=== PATIENT | male | born 1990 | race Caucasian/White ===

== ENCOUNTER 2020-05-15 11:11 | Observation (INO) | payer BC ==
[~2020-05-15] VITALS: Ht 185.4 cm; Wt 249.0 kg
[2020-05-15] VITALS (17 sets, daily range): BP systolic 104–175; BP diastolic 59–94
[2020-05-15 11:47] LABS: BASOPHILS # (AUTO) 0.1 X10'3 (0-0.2); BASOPHILS % (AUTO) 0.5 % (0-1); EOSINOPHILS % (AUTO) 0.1 % (0-6); HEMATOCRIT 47.2 % (42.0-52.0); HEMOGLOBIN 15.6 g/dl (14.0-17.9); LYMPHOCYTES # (AUTO) 1.1 X10'3 (1.1-4.8); LYMPHOCYTES % (AUTO) 6.9 % (21-51); MEAN CORPUSCULAR HEMOGLOBIN 27.1 PG (27.0-31.0); MEAN CORPUSCULAR HGB CONC 32.9 g/dL (33.0-36.5); MEAN CORPUSCULAR VOLUME 82.2 FL (78-98); MEAN PLATELET VOLUME 8.2 FL (7.4-10.4); MONOCYTES # (AUTO) 0.9 X10'3 (0-0.9); MONOCYTES % (AUTO) 5.6 % (2-12); NEUTROPHILS # (AUTO) 14.3 X10'3 (1.8-7.7); NEUTROPHILS % (AUTO) 86.9 % (42-75); PLATELET COUNT 271 X10'3 (140-440); RED BLOOD COUNT 5.74 X10'6 (4.70-6.10); RED CELL DISTRIBUTION WIDTH 14.8 % (11.5-14.5); WHITE BLOOD COUNT 16.5 X10'3 (4.5-11.0)
[2020-05-15] MEDS ORDERED: morphine 4 MG/ML inj SYRINge IV ONE (12:05)
[2020-05-15] MEDS ORDERED: ondansetron/PF 4mg/2ml inj IV ONE (12:05)
[2020-05-15] MEDS ORDERED: normal saline 1000ml 1,000 ML IV ONE (12:15)
[2020-05-15 12:28] LABS: ALANINE AMINOTRANSFERASE 48 U/L (12-78); ALBUMIN/GLOBULIN RATIO 0.9 (1.1-1.5); ALKALINE PHOSPHATASE 60 IU/L (46-116); ANION GAP 3 (8-16); ASPARTATE AMINO TRANSFERASE 19 U/L (10-37); BILIRUBIN,TOTAL 0.8 MG/DL (0.1-1.0); BLOOD UREA NITROGEN 9 MG/DL (7-18); BUN/CREATININE RATIO 10.5 (5.4-32.0); CALCIUM 8.9 MG/DL (8.5-10.1); CHLORIDE 103 MMOL/L (99-107); CREATININE 0.86 MG/DL (0.60-1.10); GLUCOSE 135 MG/DL (70-104); LIPASE 91 U/L (73-393); SODIUM 133 MMOL/L (135-145); TOTAL CARBON DIOXIDE 26.8 MMOL/L (24-32); TOTAL PROTEIN 8.6 G/DL (6.4-8.2); eGFR > 90 ML/MIN
[2020-05-15] MEDS ORDERED: levoFLOXACIN-Levaquin 500mg/D5 100 ML IV ONE (12:45)
[2020-05-15] MEDS ORDERED: NO HOME MEDS (12:53)
[2020-05-15] MEDS ORDERED: potassium Cl 20 mEq SR tablet PO PRN ×2 (13:40)
[2020-05-15] MEDS ORDERED: ondansetron/PF 4mg/2ml inj IV PRN ×2 (13:40→15:20)
[2020-05-15] MEDS ORDERED: potassium Cl 40MEQ/1/2NS 520ml 520 ML IV PRN ×2 (13:40)
[2020-05-15] MEDS ORDERED: magnesium 2GM in 50ml NS 50 ML IV PRN (13:40)
[2020-05-15] MEDS ORDERED: magnesium 4gm in 100ml NS 100 ML IV PRN (13:40)
[2020-05-15] MEDS ORDERED: magnesium Cl slow-release 64mg tablet PO PRN (13:40)
[2020-05-15] MEDS ORDERED: morphine 2 MG/ML inj. syringe IV PRN ×2 (13:40→15:20)
[2020-05-15] MEDS: normal saline 1000ml 1,000 ML IV SCH (13:54)
[2020-05-15] MEDS ORDERED: morphine 4 MG/ML inj SYRINge IV PRN (15:20)
[2020-05-15] MEDS ORDERED: hydrALAZINE 20mg/ml inj. IV PRN (15:20)
[2020-05-15] MEDS ORDERED: ringers solution, lacted 1,000 ML IV SCH (15:20)
[2020-05-15] MEDS ORDERED: labetalol 20mg/4ml (5mg/ml) syringe IV PRN (15:20)
[2020-05-15] MEDS ORDERED: ringers solution, lacted 1,000 ML IV ONE (15:20)
[2020-05-15] MEDS ORDERED: fentaNYL/PF 50MCG/1 ML 2ML syringe IV PRN ×2 (15:20)
[2020-05-15] MEDS ORDERED: TEST200V10 IM (15:21)
[2020-05-15 15:44] LABS: CLARITY,URINE CLEAR (Clear); COLOR,URINE YELLOW (Yellow); GLUCOSE, URINE NEGATIVE (Neg); KETONES,URINE NEGATIVE (Neg); LEUKOCYTE ESTERASE ,URINE NEGATIVE (Neg); NITRITES, URINE NEGATIVE (Neg); OCCULT BLOOD,URINE MODERATE (Neg); PROTEIN,URINE TRACE mg/dl (Neg); UROBILINOGEN,URINE 0.2 E.U/dL (0.2-1.0)
[2020-05-15 15:47] LABS: UA COLLECTION TYPE CLN CATCH MIDSTREAM
[2020-05-15 15:55] LABS: MUCUS STRANDS NONE SEEN /LPF (Neg); SQUAMOUS EPITHELIAL CELL,UR FEW /LPF (FEW)
[2020-05-15 15:57] LABS: BACTERIA,URINE NONE SEEN /HPF (Neg); WBC,URINE 0-4 /HPF (0-4)
--- NOTE | 2020-05-15 15:57 | NUR ---
OR CALLED AND WILL BE DOWN TO TAKE PT TO SURGERY IN APPROX 10 MIN, SURGERY SCHEDULED FOR APPROX [id number]. PT HAS REQUESTED THAT INFORMATION BE GIVEN TO HIS GIRLFRIEND, YARELI MERRILL, SHOULD SHE CALL FOR PT STATUS UPDATES. CONTACT # [phone]
[2020-05-15] MEDS ORDERED: LIDOcaine 1% 30ml preserv. free vial ONE (15:59)
[2020-05-15] MEDS ORDERED: BUPIVAcaine/PF 2.5 mg/ml (0.25%) 30ml vial ONE (15:59)
[2020-05-15] MEDS ORDERED: fentaNYL /PF 50mcg/ml 5ml ampule ONE (16:34)
[2020-05-15] MEDS ORDERED: midazolam 2 mg/2 ml injection ONE (16:34)
[2020-05-15] MEDS ORDERED: LIDOcaine 2% (20mg/ml) 5ml vial ONE (16:36)
[2020-05-15] MEDS ORDERED: propofol inj 20 ML IV ONE ×2 (16:36)
[2020-05-15] MEDS ORDERED: rocuronium 10mg/ml inj IV ONE (16:37)
[2020-05-15] MEDS ORDERED: succinylcholine 20mg/ml inj IV ONE (16:37)
[2020-05-15] MEDS ORDERED: neostigmine methylsulfate 1 MG/ML 10ml vial ONE (16:49)
[2020-05-15] MEDS ORDERED: dexamethasone sod phosphate 10mg/ml inj ONE (16:49)
[2020-05-15] MEDS ORDERED: glycopyrrolate 0.2mg/ml inj ONE (16:49)
[2020-05-15] MEDS ORDERED: sevoflurane 250ml liquid IH ONE (16:49)
[2020-05-15] MEDS ORDERED: ondansetron/PF 4mg/2ml inj ONE (17:09)
[2020-05-15] MEDS ORDERED: ceFOXitin 1000 MG inj ONE ×3 (17:12)
[2020-05-15] MEDS ORDERED: labetalol 20mg/4ml (5mg/ml) syringe IV ONE (17:30)
--- NOTE | 2020-05-15 18:20 | NUR ---
Received from OR via BED, accompanied by Anesthesiologist DR JASMINE and report given by Anesthesiolgist. PATIENT AWAKE AND TEARFUL-REASSURED THAT SX WENT WELL AND "HE DIDNT HURT ANYBODY" PT WAS AFRAID HE HAD BEEN AGGRESSIVE, DENIES PAIN, V/S WNL, NEUROVASCULAR CHECKS INTACT, 20G PIV RAC LR RUNNING, BANDAIDS X4 TO ABD CDI, PT DENIES N/V.
[2020-05-15] MEDS ORDERED: HYDROcodone/acetaminophen 5mg/325mg tablet PO PRN (18:25)
[2020-05-15] MEDS ORDERED: HYDROcodone/acetaminophen 10/325mg tab PO PRN (18:25)
--- NOTE | 2020-05-15 20:10 | NUR ---
PT REMAINS COMFORTABLE WITH JUST A SLIGHT HEADACHE, DENIES N/V, VS-WNL, ABD DRSG-4 BANDAIDS CDI, PIV RUNNING WITH LR, ON 4LTRS NC-PT TO HAVE CONT PULSE OX WHILE SLEEPING D/T SLEEP APNEA HX, PATIENT TAKEN TO RM 354A WITH ALL BELONGINGS AND HOOKED UP TO MONITORS IN ROOM AND REPORT GIVEN TO SHIRA RON WHO HAS TAKEN OVER PATIENT CARE.
[2020-05-15] MEDS: K and/or MAG REPLACEMENT MC SCH (20:20)
[2020-05-15] MEDS: acetaminophen 325mg tablet PO PRN (22:48)
[2020-05-16] VITALS: BP_SYST 136; BP_SYST 148; BP_DIAS 78; BP_DIAS 81
[2020-05-16] MEDS: normal saline 1000ml 1,000 ML IV SCH ×2 (05:18→09:40)
[2020-05-16] MEDS ORDERED: famotidine 20mg tablet PO ONE (06:00)
--- NOTE | 2020-05-16 06:27 | NUR ---
Report given to Janny RON.
[2020-05-16 07:00] VITALS: BP 138/72
[2020-05-16 07:06] LABS: BASOPHILS # (AUTO) 0.1 X10'3 (0-0.2); BASOPHILS % (AUTO) 0.4 % (0-1); EOSINOPHILS % (AUTO) 0 % (0-6); HEMATOCRIT 42.8 % (42.0-52.0); HEMOGLOBIN 14.2 g/dl (14.0-17.9); LYMPHOCYTES # (AUTO) 0.9 X10'3 (1.1-4.8); LYMPHOCYTES % (AUTO) 5.3 % (21-51); MEAN CORPUSCULAR HEMOGLOBIN 27.5 PG (27.0-31.0); MEAN CORPUSCULAR HGB CONC 33.3 g/dL (33.0-36.5); MEAN CORPUSCULAR VOLUME 82.7 FL (78-98); MONOCYTES # (AUTO) 0.8 X10'3 (0-0.9); MONOCYTES % (AUTO) 4.9 % (2-12); NEUTROPHILS # (AUTO) 15.2 X10'3 (1.8-7.7); NEUTROPHILS % (AUTO) 89.4 % (42-75); PLATELET COUNT 239 X10'3 (140-440); RED BLOOD COUNT 5.17 X10'6 (4.70-6.10); RED CELL DISTRIBUTION WIDTH 14.8 % (11.5-14.5); WHITE BLOOD COUNT 16.9 X10'3 (4.5-11.0)
[2020-05-16 07:11] LABS: ALBUMIN 3.3 G/DL (3.4-5.0); ANION GAP 7 (8-16); BLOOD UREA NITROGEN 10 MG/DL (7-18); BUN/CREATININE RATIO 14.1 (5.4-32.0); CALCIUM 8.4 MG/DL (8.5-10.1); CHLORIDE 104 MMOL/L (99-107); CREATININE 0.71 MG/DL (0.60-1.10); GLUCOSE 129 MG/DL (70-104); POTASSIUM 3.9 MMOL/L (3.5-5.1); SODIUM 138 MMOL/L (135-145); eGFR > 90 ML/MIN
[2020-05-16] MEDS: K and/or MAG REPLACEMENT MC SCH (08:00)
[2020-05-16] MEDS: acetaminophen 325mg tablet PO PRN (08:02)
[2020-05-16 11:00] VITALS: BP 128/76
[2020-05-16] MEDS ORDERED: ertapenem sod inj 1 GM in normal saline 100ml IV soln 100 ML IV ONE (12:00)
[2020-05-16] MEDS ORDERED: HYDR-3972 PO (13:22)
== END 2020-05-16 17:30 | disposition home or self-care (01) ==
LOC: ER 11:11 → ED HOLD 13:40 → SUR 3N 20:15
PROVIDERS: ADMIT Internal Medicine; ATTEND Internal Medicine
DX: K35.891 Other acute appendicitis without perforation, with gangrene (principal); Z20.828 Contact with and (suspected) exposure to other viral communicable diseases; K76.0 Fatty (change of) liver, not elsewhere classified; E66.01 Morbid (severe) obesity due to excess calories; Z88.0 Allergy status to penicillin; Z88.2 Allergy status to sulfonamides; Z68.45 Body mass index [BMI] 70 or greater, adult
CPT/HCPCS: 36415; 44970; 74176; 80048; 80053; 81001; 83690; 83735; 85025; 87081; 87635; 96361; 96365; 96367; 96375; 96376; 99284; G0378; J0330; J0694; J1100; J1335; J1956; J2001; J2250; J2270; J2405; J2704; J2710; J3010; J3490; J7030; J7120; S2900; A4215; A4618; A7000

== ENCOUNTER 2025-02-13 18:46 | Emergency (ER) | payer BC ==
[~2025-02-13] VITALS: Ht 182.9 cm; Wt 205.2 kg
[~2025-02-13 18:46] MED LIST: HYDR-3972 PO; TEST200V33 IM
[2025-02-13 18:53] VITALS: BP 176/100; PULSE 77; RESP 18; TEMP 97.8; O2SAT 97
[2025-02-13 20:21] LABS: MEAN PLATELET VOLUME 8.4 FL (7.4-10.4); RED CELL DISTRIBUTION WIDTH 14.1 % (11.5-14.5)
[2025-02-13 20:41] LABS: LEUKOCYTE ESTERASE ,URINE NEGATIVE (Neg); NITRITES, URINE NEGATIVE (Neg); OCCULT BLOOD,URINE SMALL (Neg)
[2025-02-13 20:49] LABS: UA COLLECTION TYPE NON-SPECIFIED
[2025-02-13 20:51] LABS: SQUAMOUS EPITHELIAL CELL,UR MODERATE /LPF (FEW)
[2025-02-13 22:06] LABS: CREATININE 0.77 MG/DL (0.60-1.10); TOTAL CARBON DIOXIDE 28.3 MMOL/L (24-32); eCRCL 151 ML/MIN; eGFR > 90 ML/MIN
[2025-02-13] MEDS ORDERED: PHEN-786 PO (22:06)
--- NOTE | 2025-02-13 22:07 | Physician Documentation ---
History of Present Illness ~ Chief Complaint: Urinary Symptoms Stated Complaint: KIDNEY PAIN Time Seen by MD: 21:39 HPI 34-YEAR-OLD MALE WHO PRESENTS TO THE EMERGENCY DEPARTMENT WITH THE COMPLAINTS OF DYSURIA. HE HAS BEEN FOLLOW UP BY HIS PRIMARY CARE PHYSICIAN INITIALLY HAD A UTI IN EARLY . HE HAS HAD TWO COURSES OF MACROBID BEING FOLLOWED WITH CULTURE AND SENSITIVITIES AND THEN MOST RECENTLY PLACED ON LEVAQUIN. TOMORROW IS HIS LAST DOSE OF LEVAQUIN. PRIMARILY HIS COMPLAINT IS THAT OF BLADDER SPASMS AND DISCOMFORT. DENIES PATRICK HEMATURIA, FEVER AND NAUSEA AND VOMITING. DOES REPORT SOME MILD LOWER BACK PAIN BUT DOES HAVE A HISTORY OF CHRONIC LOWER BACK PAIN. DENIES ANY TENDINOPATHIES. DENIES OTHER RECENT ILLNESS OR INJURIES SUCH GROUP A BETA STREP. REPORTS STI SCREENING HAS BEEN NEGATIVE. Medication Reconciliation Allergies: Coded Allergies: Penicillins (Unverified Allergy, Unknown, 05/15/20) Sulfa (Sulfonamide Antibiotics) (Unverified Allergy, Unknown, 05/15/20) Scheduled Testosterone Cypionate (TESTOSTERONE CYPIONATE 200mg/ml 10ml vial), 1 ML IM Q2W, (Reported) Scheduled PRN Hydrocodone Bit/Acetaminophen (Hydrocodon-Acetaminophn 10-325 tablet), 1 TAB PO Q4H PRN for SEVERE PAIN 7-10 Phenazopyridine Hcl (Pyridium tablet), 2 TAB PO Q8H PRN for pain Past Medical History Past Medical History: No Pertinent History Past Surgical History: no surgical history Drug Use: none Lives In: Home Review of Systems All Other Systems at this time: Reviewed and Negative Constitutional: Denies: chills, fever, malaise Genitourinary: Reports: dysuria, pain; Denies: discharge, flank pain, hematuria Physical Exam Vital Signs: RN Vital Signs have been reviewed: Yes, Temperature: 97.8, Source: Temporal, Heart Rate: 77, Respiratory Rate: 18, BP: 176/100, Pulse Oximetry: 97, Weight: 205.200 Oxygen Flow Rate: 0 General Appearance: alert, WD/WN, no apparent distress, obese EENT: PERRL/EOMI Neck: normal inspection Respiratory: no respiratory distress Chest: no accessory muscle use Cardiolovascular: regular rate, rhythm Rectal: deferred Penile Discharge: none Back: normal inspection Extremities: normal range of motion Skin: normal color Lymphatic: no adenopathy Neurologic: oriented x4 Psychiatric: normal mood/affect Progress Results/Orders Results/Orders Vital Signs 02/13/25 18:53 Temp 97.8 Pulse 77 Resp 18 B/P (MAP) 176/100 Pulse Ox 97 O2 Flow Rate 0 Laboratory Tests Test 02/13/25 18:55 02/13/25 20:05 Urine Specimen Description Non-specified Urine Color Yellow Urine Clarity Clear Urine pH 6.0 Urine Specific Ayr 1.025 Urine Protein Negative Urine Glucose (UA) Negative Urine Ketones Negative Urine Occult Blood Small Urine Nitrite Negative Urine Bilirubin Negative Urine Urobilinogen 0.2 Urine Leukocyte Esterase Negative Urine RBC 3-10 Urine WBC 0-4 Urine Squamous Epithelial Cells Moderate Urine Bacteria None seen Urine Culture Indicated Not ind Volume Urine Centrifuged 10 ml Urine Comment White Blood Count 8.0 Red Blood Count 5.89 Hemoglobin 17.1 Hematocrit 50.7 Mean Corpuscular Volume 86.0 Mean Corpuscular Hemoglobin 29.0 Mean Corpuscular Hemoglobin Concent 33.7 Red Cell Distribution Width 14.1 Platelet Count 181 Mean Platelet Volume 8.4 Neutrophils (%) (Auto) 64.9 Lymphocytes (%) (Auto) 26.3 Monocytes (%) (Auto) 7.2 Eosinophils (%) (Auto) 0.8 Basophils (%) (Auto) 0.8 Neutrophils # (Auto) 5.2 Lymphocytes # (Auto) 2.1 Monocytes # (Auto) 0.6 Eosinophils # (Auto) 0.1 Basophils # (Auto) 0.1 CBC Comment Sodium Level 142 Potassium Level 4.0 Chloride Level 104 Carbon Dioxide Level 28.3 Anion Gap 10 Blood Urea Nitrogen 17 Creatinine 0.77 Estimated GFR/1.73 m2 > 90 BUN/Creatinine Ratio 22.1 H Glucose Level 93 Calcium Level 9.0 Total Bilirubin 1.5 H Aspartate Amino Transf (AST/SGOT) 27 Alanine Aminotransferase (ALT/SGPT) 46 Alkaline Phosphatase 57 Total Protein 8.3 H Albumin 4.2 Globulin 4.1 Albumin/Globulin Ratio 1.0 L Lipase 26 Chemistry Comments Medical Decision Making Additional information obtaine: N/A Findings 34-YEAR-OLD MALE WITH PERSISTENT SYMPTOMS CONSISTENT WITH A UTI YET NO BACTERIA NOTED IN URINE. NO CLINICAL SUSPICION FOR PYELONEPHRITIS, PROSTATITIS OR PROCTITIS WBC COUNT IS WELL WITHIN NORMAL LIMITS. SUSPECT WORKING DIAGNOSIS TO BE THAT OF CYSTITIS OF THE OR INTERSTITIAL CYSTITIS. URINALYSIS IS REASSURING FOR NO BACTERIA AND LABORATORY SCREENING IS REASSURING FOR NO ACUTE KIDNEY INJURY. OTHER DIFFERENTIALS EXCLUDE INCLUDE BUT NOT LIMITED TO YOUR NEPHROTIC VERSUS NEPHRITIC SYNDROMES, OF THE RENAL PATHOLOGIES THERE UNFORESEEN AT THIS TIME. PATIENT IS A BENEFIT FROM CONTINUED PRIMARY CARE FOLLOW UP, PYRIDIUM DIRECTED AND UROLOGY REFERRAL CONSIDERATION. Urinary Diff Dx:Considerations: Include: Bladder outlet obstruc., Epididymitis, Prostatitis, Pyelonephritis, Renal infarction, Urolithiasis, Urinary Obstruction, Urethritis, Urinary retention, UTI Genital Diff Dx:Considerations: Include: Urethritis-chlamydial, Urethritis-gonococcal, UTI Departure Disposition: HOME / SELF CARE / HOMELESS Impression: Primary Impression: Cystitis Additional Impression: Hematuria Qualified Codes: R31.9 - Hematuria, unspecified Discharge Instructions: Hematuria, Adult, Hemorrhagic Cystitis, Interstitial Cystitis Additional Instructions: Your screening labs in the emergency tonight are all reassuring without evidence of infection or renal insufficiency. Please continue with Pyridium for bladder discomfort. Presents to your primary care physician for further workup of hematuria/cystitis likely requiring you urological referral. Thank you for visiting emergency department of [facility]. Referrals: NO PRIMARY CARE PROVIDER (PCP) Prescriptions Phenazopyridine Hcl (Pyridium tablet) 100 Mg Tablet 2 TAB PO Q8H PRN for pain, #12 TAB Prov: LORENZA OBRIEN 02/13/25 Education Educated: Patient Educated regarding: diagnosis, treatment, prognosis, need for follow up (Primary care follow up with consideration for urology follow up) Signature Scribe Signature: . Attestation: . LORENZA OBRIEN Feb 13, 2025 22:07
== END 2025-02-13 22:16 | disposition home or self-care (01) ==
LOC: ER 18:47
DX: N30.91 Cystitis, unspecified with hematuria (principal); G89.29 Other chronic pain; Z88.0 Allergy status to penicillin; Z88.2 Allergy status to sulfonamides; Z79.899 Other long term (current) drug therapy
CPT/HCPCS: 36415; 80053; 81001; 83690; 85025; 99283